=== PATIENT | female | born 1940 | race Caucasian/White ===

== ENCOUNTER 2024-11-09 08:06 | Outpatient (REF) | payer MEDICARE, SELFPAY ==
[2024-11-09 14:23] LABS: MANUAL DIFF FLAG NO
[2024-11-09 14:45] LABS: Hematocrit 38.3 % (37.0-47.0); Hemoglobin 12.4 g/dl (12.0-16.0); Imm Gran Abs Auto 0.01 X10*3/uL (0.00-0.03); Imm Gran Pct Auto 0.2 % (0.0-0.4); Lymphocytes Absolute Auto 1.4 X10*3/uL (1.2-4.9); Mean Corpuscular HGB Conc 32.4 g/dl (31.0-35.0); Mean Corpuscular Hemoglobin 28.6 pg (27.0-33.0); Mean Corpuscular Volume 88.2 fL (80.0-98.0); NRBC Abs Auto 0.000 X10*3/uL (0.0-0.012); NRBC Pct Auto 0.0 /100WBC (0.0-0.2); Platelet Count 249 X10*3/uL (160-400); Red Blood Count 4.34 X10*6/uL (4.20-5.50); White Blood Count 5.8 X10*3/uL (4.8-10.8)
[2024-11-09 15:09] LABS: Hemoglobin A1C 127.4198 umol/L; Total Hemoglobin (HGBA1C) 3361.1281 umol/L
[2024-11-09 15:28] LABS: Alanine Aminotransferase 15 U/L (0-31); Albumin Level 4.0 g/dL (3.5-5.0); Alkaline Phosphatase 63 U/L (39-117); Anion Gap 10 (12-20); Aspartate Amino Transferase 34 U/L (5-31); Blood Urea Nitrogen 23 mg/dL (9-16); Calcium 9.3 mg/dL (8.4-10.2); Carbon Dioxide 34 mmol/L (22-29); Chloride 100 mmol/L (96-108); Cholesterol 325 mg/dL (<200); Estimated Glomerular Filt Rate 47; HDL Cholesterol 70 mg/dL (>40); Iron 62 mcg/dL (30-160); Percent Iron Saturation 22 % (15-50); Potassium 3.5 mmol/L (3.3-5.1); Sodium 140 mmol/L (135-145); Total Iron Binding Capacity 283 mcg/dL (228-428); Total Protein 7.2 g/dL (6.5-8.0); Triglycerides 119 mg/dL (<150); Unsaturated Iron Binding 221 ug/dL
[2024-11-09 15:50] LABS: Folate 13.9 ng/mL (> or = 4.0); Vitamin B12 595 pg/mL (200-900)
[2024-11-09 16:08] LABS: Free T4 (Free Thyroxine) 0.88 ng/dL (0.71-1.85)
[2024-11-10 08:43] LABS: HIV Num 1 0.05 S/CO (0.00-0.99)
[2024-11-10 09:16] LABS: Syphilis Screen Nonreactive (Nonreactive)
== END 2024-11-09 08:07 | disposition home or self-care (01) ==
LOC: HO.CHCLDS 08:06
PROVIDERS: PCP Internal Medicine; Visit Provider Internal Medicine
DX: Z11.4 Encounter for screening for human immunodeficiency virus [HIV] (principal); Z11.3 Encounter for screening for infections with a predominantly sexual mode of transmission; F03.B0 Unspecified dementia, moderate, without behavioral disturbance, psychotic disturbance, mood disturbance, and anxiety
CPT/HCPCS: 36415; 80053; 80061; 82607; 82746; 83036; 83540; 84439; 84443; 85025; 86780; 87389

== ENCOUNTER 2024-12-22 13:08 | Outpatient (REF) | payer MEDICARE, SELFPAY ==
--- OUTSIDE RECORDS SUMMARY | 2024-12-21 16:00 | XMS_ITS | Encounter Summary ---
Author Organization [employer] Address [address] [facility] [address] [place] [address] Care Team Providers Care Miller Rod Mill Name Role Phone Neli Colon MD Primary Care Prov ider Encounter Details Date Type Department Care Team ([facility] st Contact Info) Description 12/21/2024 4:00 PM EDT Office Visit [facility] [address] [place], [place] [phone] Neil Colon MD [address] [place] [address] Screening-pulmonary TB (Primary Dx) Social History Tobacco Use Types Packs/Day Years Used Date Smoking Tobacco: Never Smokeless Tobacco: Never Alcohol Use Standard Drinks/Week Comments Yes 0 (1 standard drink = 0.6 oz pur e alcohol) wine weekly Depression Answer Date Recorded Patient Health Questionnaire-9 Score 0 11/06/2024 Patient Health Questionnaire-9 Score 0 11/06/2024 Last PHQ-9: Questionnaire Data Not on file 0 11/06/2024 Housing Stability Answer Date Recorded What is your housing situation today? I have ulysses romero 11/06/[address] you li ve. Do you have problems with any of the following? None of the above 11/06/2024 Food Insecurity Answer Date Recorded Within the past 12 months, y ou worried that your food would run out before you got money to buy more: Never True 11/06/2024 Within the past 12 months,th e food you bought just didn't last and you didn't have enough money to get more: Never True 10/2024 Transportation Answer Date Recorded In the past 12 months, has l ack of transportation kept you from medical appts, meetings, work or from getting things needed for daily living? No 11/06/2024 Utilities Answer Date Recorded In the past 12 months, has t he electric, gas, oil or water company threatened to shut off services in your home? No 11/06/2024 Depression Answer Date Recorded Patient Health Questionnaire-2 Score 0 11/06/2024 Internet Access Answer Date Recorded Internet Access Q1 Yes 11/06/2024 Internet Access Q2 Not on file 11/06/2024 Comments Unknown Sex and Gender Information Value Date Recorded Sex Assigned at Female 01/29/2022 10:24 AM EDT Legal Sex Female 10:24 AM EDT Gender Identity Female 01/29/2022 10:24 AM EDT Sexual Orientation Straight 01/29/2022 10 :24 AM EDT documented as of this encounter Last Filed Vital Signs Vital Sign Reading Time Taken Comments Blood Pressure 144/90 12/21/2024 4:22 PM EDT Pulse 68 12/21/2024 4:22 PM EDT Temperature 37.1 C (98.7 F) 12/21/2024 4:22 PM EDT Respiratory Rate 16 12/21/2024 4:22 PM EDT Oxygen Saturation - - Inhaled Oxygen Concentration - - Weight 49 kg (108 lb) 12/21/2024 4:22 PM EDT Height 162.6 cm (5' 4 ) 12/21/2024 4:22 PM EDT Body Mass Index 18.54 12/21/2024 4:22 PM EDT documented in this encounter Plan of Treatment Scheduled Orders Name Type Priority Associated Diagnoses Orde r Schedule T-SPOT .TB Lab Routine Screening-pulmonary TB Expected: 12/21/2024 (Approximate), Expires: 12/21/2025 documented as of this encounter Visit Diagnoses Diagnosis Screening-pulmonary TB- Primary Screening examination for pulmonary tuberculosis documented in this encounter Additional Health Concerns Assessment Noted Time PHQ-9 Depression Total Score: 0 11/07/19 1:33 PM EDT documented as of this encounter Care Teams Miller Rod Mill Relationship Specialty Start Date End Date Neil Colon MD [address] [place] [address] PCP - General Internal Medicine 11/06/24 documented as of this encounter
--- OUTSIDE RECORDS SUMMARY | 2024-12-22 16:13 | XMS_ITS | Encounter Summary ---
Author Organization [employer] Address [address] [facility] 7t [place] [address] Care Team Providers Care Concrete Block Maker Name Role Phone Neil Colon MD Primary Care Prov ider Encounter Details Date Type Department Care Team (Latest Contact Info) Description 12/21/2024 Travel Social History Tobacco Use Types Packs/Day Years [...] AM EDT documented as of this encounter Plan of Treatment Not on file documented as of this encounter Visit Diagnoses Not on filedocumented in this encounter Additional Health Concerns Assessment Noted Time PHQ-9 Depression Total Score: 0 11/07/19 1:33 PM EDT documented as of this encounter Care Teams Concrete Block Maker Relationship Specialty Start Date End Date Neil Colon MD [address] [place] [phone] PCP - General Internal Medicine 11/06/24 documented as of this encounter
--- OUTSIDE RECORDS SUMMARY | 2024-12-22 16:13 | XMS_ITS | Clinical Summary ---
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, psychotic disturbance, mood disturbance, or anxiety 11/06/2024 Assessment & Plan (11/06/2024 4:53 PM EDT): Patient oriented only in person, she is eating by herself, needs help with ADL, discussed with family members prognosis and condition, will fill out documentation for assisted living Encounters Date Type Department Care Team Description 12/21/2024 4:00 PM EDT Office Visit [facility] [address] [place] [address] Neil Colon MD Screening-pulmonary TB (Primary Dx) 12/21/2024 Travel 11/12/2024 Telephone [facility] [address] [place] [address] Neil Colon MD Results; Appointment Request 11/10/2024 Telephone [facility] [address] [place] [address] Neil Colon MD 11/09/2024 Orders Only [facility] [address] [place] [address] Neil Colon MD 11/06/2024 1:15 PM EDT Office Visit [facility] [address] [place] [address] Neil Colon MD Encounter for medical examination to establish care (Primary Dx); Moderate dementia without behavioral disturbance, psychotic disturbance, mood disturbance, or anxiety, unspecified dementia type ([facility]) 11/06/2024 Telephone [facility] [address] [place] [address] Neil Colon MD insurance 11/06/2024 Travel 10/22/2024 Telephone [facility] [address] [place] [address] Kenneth Palmer MD New Patient appt. from Last 3 Months Family History Medical History Relation Name Comments Heart disease Father Cancer Mother 1963 Relation Name Status Comments Father Mother Social History Tobacco Use Types Packs/Day Years Used Date Smoking Tobacco: Never Smokeless Tobacco: Never Tobacco Cessation:Counseling Given: Not Answered Alcohol Use Standard Drinks/Week Comments Yes 0 [...] Orientation Straight 01/29/2022 10 :24 AM EDT Last Filed Vital Signs Vital Sign Reading [...] Mass Index 18.54 12/21/2024 4:22 PM EDT Plan of Treatment Health Maintenance Due Date Last Done Comments DTaP/Tdap/Td Vaccines (1 - Tdap) 1959 Pneumococcal Vaccine: 50+ Years (1 of 1 - PCV) 02/23/1988 Zoster Vaccines (1 of 2) 02/23/1988 RSV Patients and Patients Aged 60 years or older (1 - 1-dose 75+ series) 2013 Alcohol/Substance Use Screening 11/06/2025 11/06/2024 Depression Screening 11/06/2025 11/06/2024, 11/07/19 25 SDOH Screening 11/06/2025 11/06/2024 Tobacco Screening 11/06/2025 11/06/2024 COVID-19 Vaccine Completed 12/14/2024, , 01/11/2023, Additional history exists Influenza Vaccine Completed 12/14/2024, , 01/09/2023, Additional history exists HIB Vaccines Aged Out No longer eligi ble based on patient's age to complete this topic HPV Vaccines Aged Out No longer eligi ble based on patient's age to complete this topic Hepatitis A Vaccines Aged Out No long er eligible based on patient's age to complete this topic Hepatitis B Vaccines Aged Out No long er eligible based on patient's age to complete this topic IPV Vaccines Aged Out No longer eligi ble based on patient's age to complete this topic Meningococcal B Vaccine Aged Out No l onger eligible based on patient's age to complete this topic Meningococcal Vaccine Aged Out No yg yisel eligible based on patient's age to complete this topic RSV under 20 months Aged Out No longe r eligible based on patient's age to complete this topic Rotavirus Vaccines Aged Out No longer eligible based on patient's age to complete this topic Procedures Procedure Name Priority Date/Time Associated Diagnosis Comments T4, FREE Routine 11/09/2024 8:12 AM EDT HIV 1/2 ANTIGEN/ANTIBODY, FOURTH GENERATION W/RFL Routine 11/09/2024 8:12 AM EDT Moderate dementia without behavioral disturbance, psychotic disturbance, mood disturbance, or anxiety, unspecified dementia type (CMS/HCC) SYPHILIS SCREEN Routine 11/09/2024 8:12 AM EDT Moderate dementia without behavioral disturbance, psychotic disturbance, mood disturbance, or anxiety, unspecified dementia type (CMS/HCC) TSH W/REFLEX TO FT4 Routine 11/09/2024 8 :12 AM EDT Moderate dementia without behavioral disturbance, psychotic disturbance, mood disturbance, or anxiety, unspecified dementia type (CMS/HCC) IRON AND TOTAL IRON BINDING CAPACITY Routine 11/09/2024 8:12 AM EDT Moderate dementia without behavioral disturbance, psychotic disturbance, mood disturbance, or anxiety, unspecified dementia type (CMS/HCC) VITAMIN B12/FOLATE, SERUM PANEL Routine 11/09/2024 8:12 AM EDT Moderate dementia without behavioral disturbance, psychotic disturbance, mood disturbance, or anxiety, unspecified dementia type (CMS/HCC) LIPID PANEL, STANDARD Routine 11/09/2024 8:12 AM EDT Moderate dementia without behavioral disturbance, psychotic disturbance, mood disturbance, or anxiety, unspecified dementia type (CMS/HCC) HEMOGLOBIN A1C Routine 11/09/2024 8:12 AM EDT Moderate dementia without behavioral disturbance, psychotic disturbance, mood disturbance, or anxiety, unspecified dementia type (CMS/HCC) COMPREHENSIVE METABOLIC PANEL Routine 11/09/2024 8:12 AM EDT Moderate dementia without behavioral disturbance, psychotic disturbance, mood disturbance, or anxiety, unspecified dementia type (CMS/HCC) CBC WITH AUTO DIFFERENTIAL Routine 11/09/2024 8:12 AM EDT Moderate dementia without behavioral disturbance, psychotic disturbance, mood disturbance, or anxiety, unspecified dementia type (CMS/HCC) from Last 3 Months Results * Syphilis Screen (11/09/2024 8:12 AM EDT) Syphilis Screen Nonreactive Nonreactive [facility] Blood 11/09/2024 8:12 AM EDT 11/09/2024 2:17 PM EDT us Neil Schafer MD LAB BLOOD ORDERABL ES Final Result [facility] [address] [place] [phone] * Vitamin B12 (Cobalamin) and Folate Panel, Serum (11/09/2024 8:12 AM EDT) Vitamin B12 595 200 - 900 pg/mL [facility] Comment:NORMAL 200-900 PG/ML INDETERMINATE 160-199 PG/ML DEFICIENT < 160 PG/ML Folate 13.9 > or = 4.0 ng/mL [facility] Comment:Reference Values:> o r = 4.0 ng/mL< 4.0 ng/mL suggests folate deficiency Methotrexate, aminopterin and folinic acid(leucovorin) are chemotherapeutic agents whose molecularstructures are similar to folate; therefore, the Architectfolate assay cannot be used for patients using these drugs. Blood Venous blood specimen / Unknown 11/09/2024 8:12 AM EDT 11/09/2024 2:17 PM EDT Neil Schafer MD LAB BLOOD ORDERABL ES Final Result Performing Organization Address [facility] Co de Phone Number [facility] [address] [place] [phone] * (ABNORMAL) TSH W/Reflex to FT4 (11/09/2024 8:12 AM EDT) Pathologist [facility] TSH reflex Free T4 8.17(H) 0.32 - 4.0 uIU/mL [facility] Blood Venous blood specimen / Unknown 11/09/2024 8:12 AM EDT 11/09/2024 2:17 PM EDT Neil Schafer MD LAB BLOOD ORDERABL ES Final Result Performing Organization Address [facility] [place] [facility] de Phone Number [facility] [address] [place] [phone] * CBC auto differential (11/09/2024 8:12 AM EDT) White Blood Count 5.8 4.8 - 10.8 X10*3/uL [facility] Red Blood Count 4.34 4.20 - 5.50 X10*6/uL [facility] Hemoglobin 12.4 12.0 - 16.0 g/dl [facility] Hematocrit 38.3 37.0 - 47.0 % [facility] Mean Corpuscular Volume 88.2 80.0 - 98.0 fL [facility] Mean Corpuscular Hemoglobin 28.6 27.0 - 33.0 pg [facility] Mean Corpuscular HGB Conc 32.4 31.0 - 35.0 g/dl [facility] Red Cell Distribution Width 15.1 11.0 - 16.0 % [facility] Platelet Count 249 160 - 400 X10*3/uL [facility] Mean Platelet Volume 10.4 9.4 - 12.3 fL [facility] Neutrophils Percent Auto 64.7 45 - 73 % [facility] Imm Gran Pct Auto 0.2 0.0 - 0.4 % [facility] Lymphocytes Percent Auto 24.7 20 - 40 % [facility] Monocytes Percent Auto 8.4 2 - 11 % [facility] Eosinophils Percent Auto 1.5 0 - 4 % [facility] Basophils Percent Auto 0.5 0 - 2 % [facility] NRBC Pct Auto 0.0 0.0 - 0.2 /100WBC [facility] Neutrophils Absolute Auto 3.8 2.0 - 8.3 x10*3/uL [facility] Imm Gran Abs Auto 0.01 0.00 - 0.03 X10*3/uL [facility] Lymphocytes Absolute Auto 1.4 1.2 - 4.9 X10*3/uL [facility] Monocytes Absolute Auto 0.5 0.1 - 1.2 X10*3/uL [facility] Eosinophils Absolute Auto 0.1 0.0 - 0.4 X10*3/uL [facility] Basophils Absolute Auto 0.0 0.0 - 0.2 X10*3/uL [facility] NRBC Abs Auto 0.000 0.0 - 0.012 X10*3/uL [facility] Blood Venous blood specimen / Unknown 11/09/2024 8:12 AM EDT 11/09/2024 2:17 PM EDT us Neil Schafer MD LAB BLOOD ORDERABL ES Final Result [facility] [address] [place] [phone] * Iron And Total Iron Binding Capacity (11/09/2024 8:12 AM EDT) Iron 62 30 - 160 mcg/dL [facility] Total Iron Binding Capacity 283 228 - 428 mcg/dL [facility] Percent Iron Saturation 22 15 - 50 % [facility] Unsaturated Iron Binding 221 ug/dL [facility] Blood Venous blood specimen / Unknown 11/09/2024 8:12 AM EDT 11/09/2024 2:17 PM EDT us Neil Schafer MD LAB BLOOD ORDERABL ES Final Result Performing Organization Address [facility]/ZIP Co de Phone Number [facility] [address] [place] [phone] * HIV-1/2 Antigen and Antibodies, Fourth Generation, with Reflexes (11/09/2024 8:12 AM EDT) HIV AB/AG Nonreactive Nonreactive [facility] Comment:HIV-1 p24 Ag and/or HIV-1/HIV-2 Ab not detected.A test result that is nonreactive does not exclude thepossibility of exposure to or infection with HIV-1 and/orHIV-2. Nonreactive results in this assay for individualswith prior exposure to HIV-1 and/or HIV-2 may be due toantigen and antibody levels that are below the limit ofdetection of this assay.The [employer] HIV Ag/Ab Combo assay result andsupplemental assay results should be interpreted inconjunction with the patient's clinical presentation,history and other laboratory results. If the results areinconsistent with clinical evidence, additional testing issuggested to confirm the result. Blood Venous blood specimen / Unknown 11/09/2024 8:12 AM EDT 11/09/2024 2:17 PM EDT us Neil Schafer MD LAB BLOOD ORDERABL ES Final Result Performing Organization Address [facility]/ZIP Co de Phone Number [facility] [address] [place] [phone] * T4, Free (11/09/2024 8:12 AM EDT) Free T4 (Free Thyroxine) 0.88 0.71 - 1.85 ng/dL [facility] 11/09/2024 8:12 AM EDT 11/09/2024 2:17 PM EDT Neil Schafer MD LAB BLOOD ORDERABL ES Final Result Performing Organization Address City/[facility] Co de Phone Number [facility] [address] [place] [phone] * Hemoglobin A1c (11/09/2024 8:12 AM EDT) Hemoglobin A1c 5.6 <6.0 % [facility] Comment:Hemoglobin A1C Refer ence Range Adults: 4.8 - 6.0 % Non diabetic: < 6.0 % Goal: < 7.0 %Additional Action Suggested: > 8.0 %Note: Hemoglobin A1c results are invalid for patients with abnormal amounts of HbF. Blood transfusions may impact the HbA1c concentration in the patient sample. Estimated Average Glucose 114 mg/dL [facility] Comment:eAG = Estimated ave rage glucose which is %A1C expressed asaverage glucose, using the formula of the [id number] Glucose study (ADAG), Diabetes Care, Vol.31,#8,Oct. 2007 Blood Venous blood specimen / Unknown 11/09/2024 8:12 AM EDT 11/09/2024 2:17 PM EDT Neil Schafer MD LAB BLOOD ORDERABL ES Final Result Performing Organization Address City/[facility]/ZIP Co de Phone Number [facility] [address] [place] [phone] * (ABNORMAL) Lipid Panel, Standard (11/09/2024 8:12 AM EDT) Triglycerides 119 <150 mg/dL [facility] Comment:Desirable Triglyceri de: less than 150 mg/dLBorderline High Triglyceride 150-199 mg/dLHigh Triglyceride: 200-499 mg/dLVery High Triglyceride: greater than or equal to 5OO mg/dL Cholesterol 325(H) <200 mg/dL [facility] Comment:Desirable Cholestero l: less than 200 mg/dLBorderline High Cholesterol: 200-239 mg/dLHigh Cholesterol: greater than 239 mg/dL LDL Cholesterol Calculated 232(H) <100 mg/dL [facility] Comment:Desirable LDL: less than 100 mg/dLNear Optimal/Above Optimal LDL: 110- 129 mg/dLBorderline High LDL: 130-159 mg/dLHigh LDL: 160-189 mg/dLVery High LDL: greater than or equal to 190 mg/dL HDL Cholesterol 70 >40 mg/dL [facility] Comment:Desirable HDL: great er than 40 mg/dL Note: This HDL assay may give artificially low results in patients with liver disease. Blood Venous blood specimen / Unknown 11/09/2024 8:12 AM EDT 11/09/2024 2:17 PM EDT us Neil Schafer MD LAB BLOOD ORDERABL ES Final Result [facility] [address] [place] [phone] * (ABNORMAL) Comprehensive Metabolic Panel (11/09/2024 8:12 AM EDT) Sodium 140 135 - 145 mmol/L [facility] Potassium 3.5 3.3 - 5.1 mmol/L [facility] Chloride 100 96 - 108 mmol/L [facility] Carbon Dioxide 34(H) 22 - 29 mmol/L [facility] Anion Gap 10(L) 12 - 20 [facility] Urea Nitrogen (BUN) 23(H) 9 - 16 mg/dL [facility] Creatinine, Serum 1.11 0.5 - 1.4 mg/dL [facility] Estimated Glomerular Filt Rate 47 [facility] Comment:Chronic Kidney Disea se: Estimated GFR < 60 mL/min/1.70t2Hlpcap Kidney Disease: Estimated GFR < 15 mL/min/1.73m2 Glucose 87 60 - 115 mg/dL [facility] Calcium 9.3 8.4 - 10.2 mg/dL [facility] Bilirubin, Total 0.5 0.0 - 1.0 mg/dL [facility] Aspartate Amino Transferase 34(H) 5 - 31 U/L [facility] Alanine Aminotransferase 15 0 - 31 U/L [facility] Total Protein 7.2 6.5 - 8.0 g/dL [facility] Albumin Level 4.0 3.5 - 5.0 g/dL [facility] Alkaline Phosphatase 63 39 - 117 U/L [facility] Blood Venous blood specimen / Unknown 11/09/2024 8:12 AM EDT 11/09/2024 2:17 PM EDT Neil Schafer MD LAB BLOOD ORDERABL ES Final Result [facility] [address] [place] [phone] from Last 3 Months Advance Directives Documents on File Type Date Recorded Patient Front Line Supervisor Expl anation MOL[facility] form 12/22/2024 10:03 AM [facility] For Care Teams Brush Maker Machine Relationship Specialty Start Date End Date Neil Colon MD [address] [place] [phone] PCP - General Internal Medicine 11/06/24
--- OUTSIDE RECORDS SUMMARY | 2024-12-22 16:13 | XMS_ITS | Encounter Summary ---
Author Organization [employer] Address [address] [facility] [address] [place] [address] Care Team Providers Care Photocomposing Machine Operator Name Role Phone Neil Colon MD Primary Care Prov ider Encounter Details Date Type Department Care Team (Latest Contact Info) Description 11/29/2021 Abstract [facility] CONVERSIONS Dental, Provider, DDS Social History Tobacco Use Types Packs/Day Years Used Date Smoking Tobacco: Never Assessed Comments Unknown Sex and Gender Information Value Date Recorded Sex Assigned at Female 01/29/2022 10:24 AM EDT Legal Sex Female 10:24 AM EDT Gender Identity Female 01/29/2022 10:24 AM EDT Sexual Orientation Straight 01/29/2022 10 :24 AM EDT documented as of this encounter Plan of Treatment Not on file documented as of this encounter Visit Diagnoses Not on filedocumented in this encounter Care Teams Photocomposing Machine Operator Relationship Specialty Start Date End Date Neil Colon MD [address] [facility] [place] [address] PCP - General Internal Medicine 11/06/24 documented as of this encounter
== END 2024-12-22 13:09 | disposition home or self-care (01) ==
LOC: HO.CHCLDS 13:08
PROVIDERS: Visit Provider Internal Medicine
DX: Z13.89 Encounter for screening for other disorder (principal)
CPT/HCPCS: 36415; 86481

== ENCOUNTER 2025-01-14 10:47 | Outpatient (REF) | payer MEDICARE, SELFPAY ==
[2025-01-16 19:37] LABS: TS Negative Control Passed; TS Panel A 1; TS Panel B 1; TS Positive Control Passed; TSpotTB Negative (Negative)
== END 2025-01-14 10:48 | disposition home or self-care (01) ==
LOC: HO.CHCLDS 10:47
PROVIDERS: Visit Provider Internal Medicine
DX: Z11.1 Encounter for screening for respiratory tuberculosis (principal)
CPT/HCPCS: 36415; 86481